=== PATIENT | female | born 1990 | race African-American/Black ===

== ENCOUNTER 2020-12-05 02:07 | Emergency (ER) | payer OTHER, SELFPAY ==
[2020-12-05 02:09] VITALS: BP 118/66; PULSE 84; RESP 16; TEMP 36.9; O2SAT 100; BMI 36.0
[2020-12-05 02:17] VITALS: BMI 36.0
--- NOTE | 2020-12-05 02:20 | CT_ITS ---
PROCEDURE INFORMATION: Exam: CT Abdomen And Pelvis With Contrast Exam date and time: 12/05/2020 2:20 AM Age: 30 years old Clinical indication: Nausea; Patient HX: Covid; Additional info: Abd pain, nausea TECHNIQUE: Imaging protocol: Computed tomography of the abdomen and pelvis with contrast. Radiation optimization: All CT scans at this facility use at least one of these dose optimization techniques: automated exposure control; mA and/or kV adjustment per patient size (includes targeted exams where dose is matched to clinical indication); or iterative reconstruction. Contrast material: ISOVUE; Contrast volume: 70 ml; Contrast route: IV; COMPARISON: CR XR CHEST 2V 12/05/2020 3:11 AM FINDINGS: Lungs: No mass/infiltrate at either lung base. No pleural effusion. Liver: The liver is normal in size and attenuation. Granulomatous calcifications are noted. No intrahepatic biliary dilitation. Gallbladder and bile ducts: Normal. No calcified stones. No ductal dilation. Gallbladder wall thickness is normal. Pancreas: Normal. No ductal dilation. Spleen: Normal. No splenomegaly. Granulomatous calcifications are noted. Adrenal glands: Normal. No mass. Kidneys and ureters: Normal. No hydronephrosis. Stomach and bowel: Colonic fecal stasis. No obstruction. No mucosal thickening. Small bowel mesentery is normal. Appendix: Unremarkable. Intraperitoneal space: No free air. There is a small amount of free fluid identified within the cul-de-sac. Vasculature: Unremarkable. No abdominal aortic aneurysm. Lymph nodes: Unremarkable. No enlarged lymph nodes. Urinary bladder: Unremarkable as visualized. Reproductive: Unremarkable as visualized. Bones/joints: Unremarkable. No acute fracture. Soft tissues: A small umbilical hernia is noted. IMPRESSION: 1. There is a small amount of nonspecific free fluid identified within the cul-de-sac. 2. No evidence of acute process within the abdomen or pelvis.
--- NOTE | 2020-12-05 02:20 | XR_ITS ---
PROCEDURE INFORMATION: Exam: XR Chest Exam date and time: 12/05/2020 2:20 AM Age: 30 years old Clinical indication: Shortness of breath; Additional info: SOB, cough, poss covid TECHNIQUE: Imaging protocol: XR of the chest. Views: 2 views. COMPARISON: No relevant prior studies available. FINDINGS: Lungs: Unremarkable. No consolidation. Pleural spaces: Unremarkable. No pleural effusion. No pneumothorax. Heart/Mediastinum: Unremarkable. No cardiomegaly. Bones/joints: Unremarkable. IMPRESSION: No acute findings.
[2020-12-05 02:31] LABS: Influenza A, PCR Not Detected (NotDetected); Influenza B, PCR Not Detected (NotDetected)
[2020-12-05 02:34] VITALS: PULSE 106; O2SAT 97
[2020-12-05 02:35] LABS: Basophils # 0.1 K/mm3 (0-0.2); Basophils % 0.9 % (0.1-2.0); Eosinophils # 0.1 K/mm3 (0.0-0.4); Eosinophils % 1.3 % (0.1-12.0); Hematocrit 47.1 % (37.0-47.0); Hemoglobin 14.8 g/dL (12.2-16.2); Lymphocytes # 2.3 K/mm3 (0.7-4.5); Lymphocytes % 45.9 % (10-50); Mean Corpuscular HGB Conc 31.4 g/dL (31.8-35.4); Mean Corpuscular Hemoglobin 30.1 pg (27.0-31.2); Mean Platelet Volume 9.4 fl (7.4-10.4); Monocytes # 0.4 K/mm3 (0.1-1.0); Monocytes % 8.3 % (1.7-9.3); Neutrophils # 2.1 K/mm3 (1.8-7.8); Neutrophils % 43.5 % (37.0-80.0); Platelet Count 217 K/mm3 (142-424); Red Blood Count 4.91 M/mm3 (4.20-5.40); White Blood Count 4.9 K/mm3 (4.8-10.8)
[2020-12-05 02:39] LABS: Microscopic, Urine URINE MICROSCOPIC (MICROSCOPIC)
[2020-12-05 02:40] LABS: Alanine Aminotransferase 16 U/L (12-78); Albumin Level 4.3 g/dl (3.5-5.0); Albumin/Globulin Ratio 1.2 (1.1-1.8); Alkaline Phosphatase 86 U/L (38-126); Amylase 80 U/L (30-110); Anion Gap 11.9 mEq/L (5-15); Aspartate Amino Transferase 25 U/L (14-36); Bilirubin,Total 0.2 mg/dl (0.2-1.3); Blood Urea Nitrogen 9 mg/dl (7-17); Calcium 9.1 mg/dl (8.4-10.2); Carbon Dioxide 28 mmol/L (22.0-30.0); Chloride 106 mmol/L (98-107); Creatinine Clearance Estimated 226 mL/min (50-200); Estimated Glomerular Filt Rate 117 ml/min (>60); GFR (African American) 142 ML/MIN (>60); Globulin 3.5 g/dL (1.3-3.2); Glucose 112 mg/dl (74-100); Lipase 106 U/L (23-300); Potassium 3.9 mmoL/L (3.5-5.1); Sodium 142 mmol/L (136-145); Total Protein,Serum 7.8 g/dl (6.3-8.2)
[2020-12-05 02:42] LABS: Appearance,Urine CLEAR (Clear); Bilirubin,Urine Negative (Negative); Blood, Urine Negative (Negative); Color,Urine YELLOW (Yellow); Glucose,Urine (UA) Negative (Negative); Ketones,Urine Negative (Negative); Leukocyte Esterase,Urine Negative (Negative); Nitrate,Urine Negative (Negative); Protein,Urine Negative (Negative); Urobilinogen,Urine 0.2 EU/dl (0.2)
[2020-12-05 02:45] LABS: C-Reactive Protein 5.6 mg/L (0-4)
[2020-12-05 02:49] LABS: HCG Qualitative, Serum Negative (Negative)
[2020-12-05 02:52] LABS: Bacteria,Urine 1+ /lpf
[2020-12-05 03:01] VITALS: BP 111/56; PULSE 81; O2SAT 96
[2020-12-05 03:08] LABS: Erythrocyte Sedimentation Rate 11 mm/hr (0-20); Procalcitonin < 0.030 ng/mL (0.0-2.0)
[2020-12-05 03:10] LABS: Coronavirus 19, PCR Detected (NotDetected)
--- NOTE | 2020-12-05 03:10 | CT_ITS ---
PROCEDURE INFORMATION: Exam: CTA Chest With Contrast Exam date and time: 12/05/2020 3:10 AM Age: 30 years old Clinical indication: Cough and shortness of breath; Smoker's cough; Additional info: Covid+, SOA TECHNIQUE: Imaging protocol: Computed tomographic angiography of the chest with contrast. 3D rendering (Not supervised by radiologist): MIP and/or 3D reconstructed images were created by the technologist. Radiation optimization: All CT scans at this facility use at least one of these dose optimization techniques: automated exposure control; mA and/or kV adjustment per patient size (includes targeted exams where dose is matched to clinical indication); or iterative reconstruction. Contrast material: ISOVUE 370; Contrast volume: 70 ml; Contrast route: INTRAVENOUS (IV); COMPARISON: CR XR CHEST 2V 12/05/2020 3:11 AM FINDINGS: Pulmonary arteries: The pulmonary trunk, main, and branch pulmonary arteries contain no filling defects. Aorta: Unremarkable. No aortic aneurysm. No aortic dissection. Lungs: Unremarkable. No consolidation. No masses. Pleural spaces: Unremarkable. No pneumothorax. No pleural effusion. Heart: No cardiomegaly. No pericardial effusion. Heart RV/LV ratio: Within normal limits. Coronary arteries: There is no evidence of significant coronary artery calcifications. Mediastinal space: No evidence of mediastinal or hilar mass. Lymph nodes: Unremarkable. No enlarged lymph nodes. Granulomatous calcifications of lymph nodes within the right hilus identified. Bones/joints: Unremarkable. No acute fracture. Soft tissues: Granulomatous calcifications within the liver and spleen identified. IMPRESSION: 1. No evidence of main or branch pulmonary embolism. 2. There is no evidence of acute process within the chest.
--- NOTE | 2020-12-05 03:54 | HMH.EDURI ---
ED Disposition Clinical Impression: COVID-19, Tobacco use Disposition: Home, Self-Care Condition on Discharge: Good Instructions: DI for COVID-19 (Suspected or Confirmed ) Additional Instructions: fluids and use meds Prescriptions: dexAMETHasone [Decadron] 6 mg PO DAILY #6 tab Transmission Status: Pending to [facility] #[id number] Referrals: Provider,Referral, [Primary Care Provider] - - Critical Care Critical Care Time: No Attestation: On 12/05/20, the high probability of a clinically significant, sudden or life threatening deterioration of the following system(s) required my full and direct attention, intervention and personal management. The time I documented below is in addition to time spent performing reported procedures but includes the following listed in this critical care notation. Medical Decision Making - Medical Records Medical records reviewed: Yes: I reviewed the patient's medical records. - Akil Inquiry Pt receiving controlled substance: No Vital Signs: 12/05/20 02:09 12/05/20 02:34 12/05/20 03:01 Temperature 98.4 F Temperature Source Oral Pulse Rate 106 H 81 Pulse Rate [Right] 84 Respiratory Rate 16 Blood Pressure 111/56 L Blood Pressure [Right Arm] 118/66 Blood Pressure Mean 88 Blood Pressure Mean [Right Arm] 83 02 Sat by Pulse Oximetry 100 97 96 Oxygen Delivery Method Room Air Room Air - Lab Data Lab results reviewed: Yes: I reviewed the patient's lab results. Lab Results 12/05/20 02:26: WBC 4.9, RBC 4.91, Hgb 14.8, Hct 47.1 H, MCV 96.0, MCH 30.1, MCHC 31.4 L, RDW 13.0, Plt Count 217, MPV 9.4, Neut % (Auto) 43.5, Lymph % (Auto) 45.9, [place] % (Auto) 8.3, Eos % (Auto) 1.3, Baso % (Auto) 0.9, Neut # (Auto) 2.1, Lymph # (Auto) 2.3, [place] # (Auto) 0.4, Eos # (Auto) 0.1, Baso # (Auto) 0.1, ESR 11 12/05/20 02:26: Sodium 142, Potassium 3.9, Chloride 106, Carbon Dioxide 28, Anion Gap 11.9, BUN 9, Creatinine 0.60, Estimated Creat Clear 226, Estimated GFR 117, Est GFR ( Amer) 142, Glucose 112 H, Calcium 9.1, Total Bilirubin 0.2, AST 25, ALT 16, Alkaline Phosphatase 86, C-Reactive Protein 5.6 H, Total Protein 7.8, Albumin 4.3, Globulin 3.5 H, Albumin/Globulin Ratio 1.2, Amylase 80, Procalcitonin < 0.030 12/05/20 02:26: Serum HCG, Qual Negative 12/05/20 02:26: SARS-CoV-2 (PCR) Detected A, Influenza A Untype (PCR) Not detected, Influenza Type B (PCR) Not detected 12/05/20 02:26: Lipase 106 12/05/20 02:31: Urine Color Yellow, Urine Appearance Clear, Urine pH 7.0, Ur Specific [place] 1.020, Urine Protein Negative, Urine Glucose (UA) Negative, Urine Ketones Negative, Urine Blood Negative, Urine Nitrate Negative, Urine Bilirubin Negative, Urine Urobilinogen 0.2, Ur Leukocyte Esterase Negative, Urine WBC 3-5, Ur Squamous Epith Cells 3-5, Urine Bacteria 1+ Result diagrams: 12/05/20 02:26 12/05/20 02:26 Orders (Tests/Meds): ED MEDICATIONS Generic Name Dose Route Start Last Admin Trade Name Freq PRN Reason Stop Dose Admin Albuterol Sulfate 2 puffs 12/05/20 04:08 Albuterol-Hfa 90mcg/Puff Inhaler 8gm IH 01/04/21 04:07 Q6HP PRN Shortness Of Breath Sodium Chloride 1,000 mls @ 999 mls/hr 12/05/20 02:30 12/05/20 02:46 Sod Chlor 0.9% 1000ml Bag IV 12/05/20 03:30 999 mls/hr .Q1H1M SUSAN Administration Sodium Chloride 8 ml 12/05/20 02:45 12/05/20 02:59 Sodium Chloride 0.9% 10ml Vial IV 01/04/21 02:44 8 ml NEEDED PRN Administration dilute pepcid Discontinued Medications Generic Name Dose Route Start Last Admin Trade Name Freq PRN Reason Stop Dose Admin Dexamethasone Sodium Phosphate 10 mg 12/05/20 02:59 12/05/20 03:00 Dexamethasone 4mg/Ml 1ml Vial IV 12/05/20 03:00 10 mg ONCE ONE Administration Famotidine 20 mg 12/05/20 02:45 12/05/20 02:59 Famotidine 20mg/2ml Vial IV 12/05/20 02:46 20 mg ONCE ONE Administration Iopamidol 70 ml 12/05/20 03:53 12/05/20 03:54 Iopamidol-370 (76%);100ml Bottl
--- NOTE | 2020-12-05 03:56 | PC.NURSE ---
pt back from ct scan
[2020-12-05 04:18] VITALS: BP 142/88; PULSE 84; RESP 20; TEMP 36.9; O2SAT 99
== END 2020-12-05 04:22 | disposition home or self-care (01) ==
PROVIDERS: Emergency Provider Emergency Medicine
DX: U07.1 COVID-19 (principal); Z72.0 Tobacco use
CPT/HCPCS: 71046; 71275; 74177; 80053; 81001; 82150; 83690; 84145; 84703; 85025; 85651; 86140; 96365; 99283; C9803; J2405; Q9967; U0003; U0005

== ENCOUNTER 2024-05-14 09:57 | Emergency (ER) | payer SELFPAY ==
[2024-05-14] VITALS (11 sets, daily range): BP systolic 94–147; BP diastolic 58–102; PULSE 70–92; RESP 16–18; TEMP 36.7–36.9; O2SAT 95–100; BMI 25.8
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
--- NOTE | 2024-05-14 10:06 | PC.NURSE ---
dr velsaquez at bedside
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
--- NOTE | 2024-05-14 10:29 | XR_ITS ---
PROCEDURE INFORMATION: Exam: XR Left Hand Exam date and time: 05/14/2024 11:12 AM Age: 33 years old Clinical indication: Injury or trauma; Fall; Other: Pain; Additional info: Fall, pain TECHNIQUE: Imaging protocol: Radiologic exam of the left hand. Views: 3 or more views. COMPARISON: CR XR FOREARM LT 2V 05/14/2024 11:12 AM FINDINGS: Bones/joints: Osseous structures are intact. No fracture or malalignment. Visualized joint surfaces are preserved. Soft tissues: 2 punctate densities along the nail bed of the 2nd distal phalanx similar to the right hand presumed extraneous to the patient. IMPRESSION: No acute bony abnormalities.
--- NOTE | 2024-05-14 10:29 | XR_ITS ---
PROCEDURE INFORMATION: Exam: XR Left Wrist Exam date and time: 05/14/2024 11:12 AM Age: 33 years old Clinical indication: Injury or trauma; Fall; Other: Pain; Additional info: Fall pain TECHNIQUE: Imaging protocol: Radiologic exam of the left wrist. Views: 3 or more views. COMPARISON: CR XR WRIST LT MIN 3V 05/14/2024 11:12 AM FINDINGS: Bones/joints: Osseous structures and joint surfaces are intact. No fracture or malalignment. Soft tissues: Normal. IMPRESSION: Normal left wrist.
--- NOTE | 2024-05-14 10:29 | XR_ITS ---
PROCEDURE INFORMATION: Exam: XR Right Forearm Exam date and time: 05/14/2024 11:12 AM Age: 33 years old Clinical indication: Injury or trauma; Fall; Other: Pain; Additional info: Fall, pain TECHNIQUE: Imaging protocol: Radiologic exam of the right forearm. Views: 2 views. COMPARISON: CR XR FOREARM RT 2V 05/14/2024 11:12 AM FINDINGS: Bones/joints: Normal. No fracture, deformity or underlying osseous lesion detected. Soft tissues: Normal. IMPRESSION: Normal right forearm.
--- NOTE | 2024-05-14 10:29 | XR_ITS ---
PROCEDURE INFORMATION: Exam: XR Right Hand Exam date and time: 05/14/2024 11:12 AM Age: 33 years old Clinical indication: Injury or trauma; Fall; Other: Pain; Additional info: Fall, pain TECHNIQUE: Imaging protocol: Radiologic exam of the right hand. Views: 3 or more views. COMPARISON: CR XR FOREARM RT 2V 05/14/2024 11:12 AM FINDINGS: Bones/joints: Osseous structures are intact. No fracture or malalignment. Visualized joint surfaces are preserved. Soft tissues: There are 2 punctate densities within the soft tissues dorsal to the distal tuft 2nd phalanx that appear to be adjacent to the nail bed possibly extraneous and should be correlated clinically.. IMPRESSION: No acute bony abnormalities.
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
[2024-05-14] MEDS: KETOROLAC 30MG/ML VIAL 15 MG IV (10:36)
[2024-05-14 10:48] LABS: Basophils % 0.5 % (0.1-2.0); Eosinophils # 0.1 K/mm3 (0.0-0.4); Eosinophils % 1.6 % (0.1-12.0); Hematocrit 41.3 % (37.0-47.0); Hemoglobin 13.6 g/dL (12.2-16.2); Lymphocytes # 2.7 K/mm3 (0.7-4.5); Lymphocytes % 31.9 % (10-50); Mean Corpuscular HGB Conc 32.9 g/dL (31.8-35.4); Mean Corpuscular Hemoglobin 30.8 pg (27.0-31.2); Mean Corpuscular Volume 93.7 fl (81-99); Mean Platelet Volume 9.6 fl (7.4-10.4); Monocytes # 0.5 K/mm3 (0.1-1.0); Monocytes % 6.5 % (1.7-9.3); Neutrophils # 4.9 K/mm3 (1.8-7.8); Neutrophils % 59.3 % (37.0-80.0); Platelet Count 283 K/mm3 (142-424); Red Blood Count 4.41 M/mm3 (4.20-5.40); Red Cell Distribution Width 12.6 % (11.5-17.5); White Blood Count 8.3 K/mm3 (4.8-10.8)
[2024-05-14 10:52] LABS: Albumin Level 5.1 g/dl (3.5-5.0); Chloride 104 mmol/L (98-107); Potassium 3.8 mmoL/L (3.5-5.1); Sodium 141 mmol/L (136-145)
[2024-05-14 10:54] LABS: Blood Urea Nitrogen 16 mg/dl (7-17); Creatinine Clearance Estimated 118 mL/min (50-200); Estimated Glomerular Filt Rate 83 ml/min (>60); GFR (African American) 100 ML/MIN (>60)
[2024-05-14 10:55] LABS: Alanine Aminotransferase 22 U/L (12-78); Albumin/Globulin Ratio 1.6 (1.1-1.8); Alkaline Phosphatase 89 U/L (38-126); Anion Gap 10.8 mEq/L (5-15); Aspartate Amino Transferase 31 U/L (14-36); Bilirubin,Total 0.6 mg/dl (0.2-1.3); Calcium 9.3 mg/dl (8.4-10.2); Carbon Dioxide 30 mmol/L (22.0-30.0); Globulin 3.1 g/dL (1.3-3.2); Glucose 94 mg/dl (74-100); Total Protein,Serum 8.2 g/dl (6.3-8.2)
[2024-05-14 11:04] LABS: HCG Qualitative, Serum Negative (Negative)
--- NOTE | 2024-05-14 11:24 | PC.NURSE ---
pt reports increased neck pain. spoke with MD who is currently @ bedside
[2024-05-14] MEDS: MORPHINE 4MG/ML SYRINGE 4 MG IV (11:30)
[2024-05-14] MEDS: SODIUM CHLORIDE 0.9% 10ML SYR (RAD ONLY) 10 ML IV (11:46)
[2024-05-14 11:47] LABS: HIV Combo NEGATIVE (Negative)
[2024-05-14] MEDS: IOPAMIDOL-370 (76%);100ML BOTTLE 150 ML IV (11:48)
[2024-05-14] MEDS: 0.9 % SODIUM CHLORIDE 50 ML VIAL 100 ML IV (11:48)
[2024-05-14 11:56] LABS: Hepatitis C Ab Qual. W/ RFX NEGATIVE (Negative)
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
--- NOTE | 2024-05-14 13:05 | PC.NURSE ---
PT TO CT
[2024-05-14] MEDS: DIATRIZOATE MEG 66% & DIATRIZOATE NA 10% 30ML UDC 30 ML PO (13:13)
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
--- NOTE | 2024-05-14 15:15 | PC.NURSE ---
DR MORGAN SPEAKING WITH [facility]
--- NOTE | 2024-05-14 15:27 | PC.NURSE ---
[facility] NOTIFIED OF TRANSFER
--- NOTE | 2024-05-14 15:39 | PC.NURSE ---
Patients sister contacted the ED regarding the patients status, confirmed with patient that it was okay to disclose her medical information with her sister. Took name and phone number of sister and will return a phone call if anything changes.
== END 2024-05-14 16:25 | disposition left against medical advice (07) ==
PROVIDERS: Emergency Provider Student in an Organized Health Care Education/Training Program; PCP Internal Medicine Adolescent Medicine
DX: M54.2 Cervicalgia (principal); R20.2 Paresthesia of skin; H57.11 Ocular pain, right eye; M25.531 Pain in right wrist; M25.532 Pain in left wrist; M79.641 Pain in right hand; M79.642 Pain in left hand; Z53.29 Procedure and treatment not carried out because of patient's decision for other reasons; Z72.0 Tobacco use; Y04.8XXA Assault by other bodily force, initial encounter; Y93.89 Activity, other specified; Y92.9 Unspecified place or not applicable
CPT/HCPCS: 70450; 70490; 70496; 70498; 71275; 72125; 73090; 73110; 73130; 80053; 84703; 85025; 86803; 87389; 96374; 96375; 99285; J1885; J2270; Q9963; Q9967